=== PATIENT | female | born 1950 | race Caucasian/White ===

== ENCOUNTER → 2020-11-01 | Emergency (ER) | payer SELFPAY ==
[~2020-11-01] VITALS: Ht 198.1 cm; Wt 71.7 kg
[~2020-11-01] MED LIST: IV NS 0.9% 500 ML BAG IV ONE
--- NOTE | 2020-11-01 17:28 | NUR ---
[facility] TRANSFERED FROM A BLS TRANSPORT TO [facility]. AAOX3. NOT IN RESP DISTRESS. BROUGHT IN FOR HYPOTENSION. PER EMS REPORT, PT WAS NOTED WITH BP IN THE 80s. UPON ASSESSING PT WAS NOTED WITH BP OF 73/49. MD WAS AT THE BEDSIDE FOR EVAL. ORDERS RECEIVED, NOTE AND CARRIED OUT. IV LINE ALREADY PRESENT ON RFA 20G BY EMS.
[2020-11-01 18:06] LABS: BASOPHILS % (AUTO) 0.2 % (0.0-2.0)
[2020-11-01 18:14] LABS: HEMATOCRIT 28 % (33-45); LYMPHOCYTES # (AUTO) 0.5 /CMM (0.8-4.8); LYMPHOCYTES % (AUTO) 2.4 % (20.0-44.0); MEAN CORPUSCULAR HGB CONC 32 g/dl (31.0-36.0); MEAN CORPUSCULAR VOLUME 99 fL (82-100); MONOCYTES # (AUTO) 1.9 /CMM (0.1-1.30); NEUTROPHILS # (AUTO) 16.8 /CMM (1.8-8.9); NEUTROPHILS % (AUTO) 87.4 % (43.0-81.0); PLATELET COUNT (AUTO) 771 /CMM (150-450); RED BLOOD CELL COUNT(AUTO) 2.86 MIL/uL (4.0-5.2); WHITE BLOOD COUNT (AUTO) 19.2 K/uL (4.3-11.0)
[2020-11-01 18:23] LABS: CALCIUM, SERUM 8.1 mg/dL (8.5-10.1); CARBON DIOXIDE 20 mmol/L (21-32); CHLORIDE 101 mmol/L (98-107); CREATININE 5.8 mg/dL (0.6-1.3); GLUCOSE 233 mg/dL (74-106); POTASSIUM 4.3 mmol/L (3.5-5.1); SODIUM SERUM 138 mmol/L (136-145)
--- NOTE | 2020-11-01 18:28 | NUR ---
LAB CALLED K[facility] Guerrero MD MADE AWARE
[2020-11-01 18:30] LABS: ALANINE AMINOTRANSFERASE 26 U/L (12-78); ALKALINE PHOSPHATASE 330 U/L (46-116); ASPARTATE AMINOTRANSFERASE 83 U/L (15-37); BILIRUBIN,DIRECT 10.1 mg/dL (0.0-0.2); BILIRUBIN,TOTAL 12.1 mg/dL (0.2-1.0); TOTAL PROTEIN, SERUM 5.7 g/dL (6.4-8.2)
[2020-11-01 18:32] LABS: ALBUMIN 0.9 g/dL (3.4-5.0)
[2020-11-01 18:33] LABS: UREA NITROGEN, BLOOD 126 mg/dL (7-18)
[2020-11-01 18:40] VITALS: BP 79/49
--- NOTE | 2020-11-01 18:40 | NUR ---
Patient signed AMA .
--- NOTE | 2020-11-01 18:42 | NUR ---
Patient awake alert Vitals taken 79/49 MD aware patient remain AMA awake alert her family @ bedside .
--- NOTE | 2020-11-01 18:48 | NUR ---
Patient assisted to [place] by Zeina to WC .Agrees to follow up .
[2020-11-01 19:31] LABS: BAND % (MANUAL) 2 % (0.0-5.0); LYMPHOCYTES % (MANUAL) 6 % (16-48); MONOCYTES % (MANUAL) 3 % (0-11.0); NEUTROPHILS % (MANUAL) 89 (42-76)
--- NOTE | 2020-11-03 21:07 | NUR ---
LAB CALLED REGARDING BLOOD CULTURE (+) FOR YEAST
== END | disposition home or self-care (01) ==
LOC: ER 16:53
DX: K72.90 Hepatic failure, unspecified without coma (principal); N17.9 Acute kidney failure, unspecified; D72.829 Elevated white blood cell count, unspecified; Z98.890 Other specified postprocedural states
CPT/HCPCS: 36415; 71045; 80048; 80076; 83605; 84145; 84484; 85007; 85025; 85730; 87040 ×2; 93005; 96360; 99285; J7030